=== PATIENT | male | born 1945 | race African-American/Black ===

== ENCOUNTER 2017-10-31 11:34 | Inpatient (IN) | payer OTHER ==
[2017-10-31 12:36] VITALS: BMI 37.3
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
[2017-10-31] MEDS ORDERED: ACETAMINOPHEN 325 MG TABLET (FP) PO PRN (15:43)
[2017-10-31] MEDS ORDERED: NICOTINE POLACRILEX 4 MG GUM BC PRN (15:43)
[2017-10-31] MEDS ORDERED: MAG HYDROX/AL HYDROX/SIMETH 30 ML UNIT-DOSE CUP PO PRN (15:43)
[2017-10-31] MEDS ORDERED: MAGNESIUM HYDROX 2400MG/30ML ORAL SUSPENSION 30 ML CUP PO PRN (15:43)
[2017-10-31] MEDS ORDERED: guaiFENesin/D-METHORPHAN HB 10 ML UNIT-DOSE CUPS PO PRN (15:43)
[2017-10-31] MEDS ORDERED: chlordiazePOXIDE HCL 25 MG CAPSULE PO PRN (15:43)
[2017-10-31] MEDS ORDERED: MAGNESIUM CITRATE 300 ML BOTTLE PO PRN (15:43)
[2017-10-31] MEDS ORDERED: IBUPROFEN 400 MG TABLET (FP) PO PRN (15:43)
[2017-10-31] MEDS ORDERED: P-EPHED 60MG/TRIPROLIDI 2.5MG TABLET PO PRN (15:43)
[2017-10-31] MEDS ORDERED: MENTHOL/PHENOL 1 EACH UD MM PRN (15:43)
[2017-10-31] MEDS ORDERED: LOPERAMIDE HCL 2 MG CAPSULE PO PRN (15:43)
[2017-10-31] MEDS ORDERED: METHADONE HCL 10 MG TABLET (FOR DETOX USE ONLY) PO ONE ×2 (16:30→23:00)
[2017-10-31] MEDS: chlordiazePOXIDE HCL 25 MG CAPSULE PO SCH ×2 (17:21→22:24)
[2017-10-31] MEDS: THIAMINE HCL 100 MG TABLET (FP) PO SCH (22:24)
[2017-10-31 23:08] LABS: PH,URINE 6.5 (5.0-8.0); URINE APPEARANCE CLEAR; URINE BILIRUBIN NEGATIVE (NEGATIVE); URINE BLOOD TRACE-LYSE (NEGATIVE); URINE COLOR LT. YELLOW; URINE GLUCOSE (UA) NEGATIVE (NEGATIVE); URINE KETONE NEGATIVE (NEGATIVE); URINE LEUK ESTERASE NEGATIVE (NEGATIVE); URINE NITRITE NEGATIVE (NEGATIVE); URINE UROBILINOGEN 0.2 mg/dL (0.2-1.0)
[2017-10-31 23:18] LABS: URINE PROTEIN 2+ (NEGATIVE)
[2017-10-31 23:30] LABS: URINE RBC 12 /hpf (0-3); URINE WBC 1 /hpf (3-5)
[2017-11-01] MEDS: chlordiazePOXIDE HCL 25 MG CAPSULE PO SCH ×4 (07:47→22:22)
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
[2017-11-01] MEDS ORDERED: LISINOPRIL 10 MG TABLET (FP) PO SCH (10:00)
[2017-11-01] MEDS ORDERED: METHADONE HCL 10 MG TABLET (FOR DETOX USE ONLY) PO SCH (10:00)
[2017-11-01] MEDS ORDERED: HYDROCHLOROTHIAZIDE 12.5 MG CAPSULE (FP) PO SCH (10:00)
[2017-11-01 10:12] LABS: MCH 30.6 pg (25.7-33.7); MCHC 32.4 g/dl (32.0-35.9); MEAN CELL VOLUME 94.5 fl (80-96); MEAN PLT VOLUME 8.9 fl (7.5-11.1); PLATELET COUNT 158 K/MM3 (134-434); RDW 14.8 % (11.9-15.9); WHITE BLOOD COUNT 5.1 K/mm3 (4.0-10.0)
[2017-11-01 10:31] LABS: ALBUMIN 2.6 g/dl (3.4-5.0); ALK PHOS 88 U/L (45-117); ANION GAP 10 (8-16); BILIRUBIN,TOTAL 0.7 mg/dL (0.2-1.0); CALCIUM 8.2 mg/dL (8.5-10.1); CO2 22 mmol/L (21-32); GLUCOSE,RANDOM 94 mg/dL (74-106); SGOT/AST 56 U/L (15-37); SGPT/ALT 29 U/L (12-78); TOT PROT 7.7 g/dl (6.4-8.2)
[2017-11-01 10:42] LABS: URINE LEUK ESTERASE Negative (NEGATIVE)
[2017-11-01] MEDS: PRENATAL VITAMINS W/ FOLIC ACID TABLET (FP) PO SCH (10:45)
[2017-11-01] MEDS: NICOTINE 21 MG/24 HOURS TOPICAL PATCH TD SCH (10:45)
[2017-11-01] MEDS ORDERED: NAPROXEN 500 MG TABLET (FP) PO ONE (11:34)
--- NOTE | 2017-11-01 11:41 | EKG ---
Test Reason : Blood Pressure : / mmHG Vent. Rate : 066 BPM Atrial Rate : 066 BPM P-R Int : 168 ms QRS Dur : 096 ms QT Int : 434 ms P-R-T Axes : 045 -20 000 degrees QTc Int : 454 ms NORMAL SINUS RHYTHM NORMAL ECG NO PREVIOUS ECGS AVAILABLE Confirmed by ISAAK LE MD ([id number]) on 11/01/2017 11:41:11 AM Referred By: Confirmed By:ISAAK LE MD
--- NOTE | 2017-11-01 11:44 | PN ---
[facility] CIWA - CIWA Score Nausea/Vomitin-No Nausea/No Vomiting Muscle Tremors: 4-Moderate,w/Arms Extend Anxiety: 4-Mod. Anxious/Guarded Agitation: 4-Moderately Restless Paroxysmal Sweats: 1-Minimal Palms Moist Orientation: 0-Oriented Tacttile Disturbances: 3-Moderate Itch/Numb/Burn Auditory Disturbances: 0-None Visual Disturbances: 0-None Headache: 0-None Present CIWA-Ar Total Score: 16 S COWS - Scale Resting Pulse: 0= [place] 80 or Below Sweatin=Flushed/Facial Moisture Restless Observation: 3= Extraneous Movement Pupil Size: 2= Moderately Dilated Bone or Joint Aches: 4=Acute Joint/Muscle Pain Runny Nose/ Eye Tearin= None GI Upset > 30mins: 0= None Tremor Observation of Outstretched Hands: 1= Tremor [place], Not Seen Yawning Observation: 1= 1-2x During Session Anxiety or Irritability: 2=Irritable/Anxious Goose Flesh Skin: 0=Smooth Skin COWS Score: 15 [facility] Progress Note (SOAP) Subjective: ANXIETY,SWEATS,IRRITABILITY,FATIGUE. PT ON LOSARTAN 100 MG PO DAILY AND NORVASC 10 MG PO DAILY PER HOME PHARMACY LIST. Objective: 11/01/17 11:36 Vital Signs Temperature 96.1 F L 11/01/17 09:36 Pulse Rate 59 L 11/01/17 09:36 Respiratory Rate 18 11/01/17 09:36 Blood Pressure 189/108 11/01/17 09:36 O2 Sat by Pulse Oximetry (%) Laboratory Last Values WBC 5.1 K/mm3 (4.0-10.0) D 11/01/17 05:45 RBC 4.19 M/mm3 (4.00-5.60) 11/01/17 05:45 Hgb 12.8 GM/dL (11.7-16.9) D 11/01/17 05:45 Hct 39.6 % (35.4-49) D 11/01/17 05:45 MCV 94.5 fl (80-96) 11/01/17 05:45 MCH 30.6 pg (25.7-33.7) 11/01/17 05:45 MCHC 32.4 g/dl (32.0-35.9) 11/01/17 05:45 RDW 14.8 % (11.9-15.9) 11/01/17 05:45 Plt Count 158 K/MM3 (134-434) 11/01/17 05:45 MPV 8.9 fl (7.5-11.1) D 11/01/17 05:45 Sodium 138 mmol/L (136-145) 11/01/17 05:45 Potassium 3.8 mmol/L (3.5-5.1) 11/01/17 05:45 Chloride 106 mmol/L (98-107) 11/01/17 05:45 Carbon Dioxide 22 mmol/L (21-32) 11/01/17 05:45 Anion Gap 10 (8-16) 11/01/17 05:45 BUN 16 mg/dL (7-18) D 11/01/17 05:45 Creatinine 1.0 mg/dL (0.7-1.3) D 11/01/17 05:45 Creat Clearance w eGFR > 60 (>60) 11/01/17 05:45 Random Glucose 94 mg/dL (74-106) 11/01/17 05:45 Calcium 8.2 mg/dL (8.5-10.1) L 11/01/17 05:45 Total Bilirubin 0.7 mg/dL (0.2-1.0) D 11/01/17 05:45 AST 56 U/L (15-37) H 11/01/17 05:45 ALT 29 U/L (12-78) 11/01/17 05:45 Alkaline Phosphatase 88 U/L (45-117) D 11/01/17 05:45 Total Protein 7.7 g/dl (6.4-8.2) 11/01/17 05:45 Albumin 2.6 g/dl (3.4-5.0) L 11/01/17 05:45 Urine Color Lt. yellow 10/31/17 21:00 Urine Appearance Clear 10/31/17 21:00 Urine pH 6.5 (5.0-8.0) D 10/31/17 21:00 Ur Specific [place] 1.025 (1.001-1.035) 10/31/17 21:00 Urine Protein 2+ (NEGATIVE) H 10/31/17 21:00 Urine Glucose (UA) Negative (NEGATIVE) 10/31/17 21:00 Urine Ketones Negative (NEGATIVE) 10/31/17 21:00 Urine Blood Trace-lyse (NEGATIVE) 10/31/17 21:00 Urine Nitrite Negative (NEGATIVE) 10/31/17 21:00 Urine Bilirubin Negative (NEGATIVE) 10/31/17 21:00 Urine Urobilinogen 0.2 mg/dL (0.2-1.0) 10/31/17 21:00 Ur Leukocyte Esterase Negative (NEGATIVE) 10/31/17 21:00 Urine WBC (Auto) 1 /hpf (3-5) 10/31/17 21:00 Urine RBC (Auto) 12 /hpf (0-3) 10/31/17 21:00 Ur Epithelial Cells Rare /HPF (FEW) 10/31/17 21:00 Assessment: 11/01/17 11:36 WITHDRAWAL SX Plan: CONTINUE DETOX INCREASE PO FLUIDS. REORDER MEDS ABOVE D/C LISINOPRIL AND HCTZ.
[2017-11-01] MEDS ORDERED: cloNIDine HCL 0.1 MG TABLET PO ONE (14:34)
[2017-11-01] MEDS: NAPROXEN 500 MG TABLET (FP) PO SCH (22:22)
[2017-11-01] MEDS: THIAMINE HCL 100 MG TABLET (FP) PO SCH (22:22)
[2017-11-02] MEDS: chlordiazePOXIDE HCL 25 MG CAPSULE PO SCH ×2 (06:43→10:25)
[2017-11-02] MEDS: LOSARTAN POTASSIUM 50 MG TABLET (FP) PO SCH (09:29)
[2017-11-02] MEDS: amLODIPine BESYLATE 10 MG TABLET (FP) PO SCH (09:29)
[2017-11-02] MEDS: PRENATAL VITAMINS W/ FOLIC ACID TABLET (FP) PO SCH (10:24)
[2017-11-02] MEDS: NAPROXEN 500 MG TABLET (FP) PO SCH ×2 (10:24→22:56)
[2017-11-02] MEDS: NICOTINE 21 MG/24 HOURS TOPICAL PATCH TD SCH (10:25)
[2017-11-02] MEDS: METHADONE HCL 5 MG TABLET (FOR DETOX USE ONLY) PO SCH (10:25)
--- NOTE | 2017-11-02 10:49 | PN ---
[facility] CIWA - CIWA Score Nausea/Vomitin-No Nausea/No Vomiting Muscle Tremors: 4-Moderate,w/Arms Extend Anxiety: 4-Mod. Anxious/Guarded Agitation: 4-Moderately Restless Paroxysmal Sweats: 1-Minimal Palms Moist Orientation: 0-Oriented Tacttile Disturbances: 3-Moderate Itch/Numb/Burn Auditory Disturbances: 0-None Visual Disturbances: 0-None Headache: 0-None Present CIWA-Ar Total Score: 16 S COWS - Scale Resting Pulse: 0= [place] 80 or Below Sweatin= Chills/Flushing Restless Observation: 3= Extraneous Movement Pupil Size: 0= Normal to Room Light Bone or Joint Aches: 4=Acute Joint/Muscle Pain Runny Nose/ Eye Tearin= Nasal Congestion GI Upset > 30mins: 0= None Tremor Observation of Outstretched Hands: 1= Tremor [place], Not Seen Yawning Observation: 1= 1-2x During Session Anxiety or Irritability: 2=Irritable/Anxious Goose Flesh Skin: 0=Smooth Skin COWS Score: 13 S Progress Note (SOAP) Subjective: ANXIETY,SWEATS,IRRITABILITY,AGITATION. Objective: 11/02/17 10:50 Vital Signs Temperature 96.5 F L 11/02/17 10:32 Pulse Rate 62 11/02/17 10:32 Respiratory Rate 18 11/02/17 10:32 Blood Pressure 183/107 11/02/17 10:32 O2 Sat by Pulse Oximetry (%) Laboratory Last Values WBC 5.1 K/mm3 (4.0-10.0) D 11/01/17 05:45 RBC 4.19 M/mm3 (4.00-5.60) 11/01/17 05:45 Hgb 12.8 GM/dL (11.7-16.9) D 11/01/17 05:45 Hct 39.6 % (35.4-49) D 11/01/17 05:45 MCV 94.5 fl (80-96) 11/01/17 05:45 MCH 30.6 pg (25.7-33.7) 11/01/17 05:45 MCHC 32.4 g/dl (32.0-35.9) 11/01/17 05:45 RDW 14.8 % (11.9-15.9) 11/01/17 05:45 Plt Count 158 K/MM3 (134-434) 11/01/17 05:45 MPV 8.9 fl (7.5-11.1) D 11/01/17 05:45 Sodium 138 mmol/L (136-145) 11/01/17 05:45 Potassium 3.8 mmol/L (3.5-5.1) 11/01/17 05:45 Chloride 106 mmol/L (98-107) 11/01/17 05:45 Carbon Dioxide 22 mmol/L (21-32) 11/01/17 05:45 Anion Gap 10 (8-16) 11/01/17 05:45 BUN 16 mg/dL (7-18) D 11/01/17 05:45 Creatinine 1.0 mg/dL (0.7-1.3) D 11/01/17 05:45 Creat Clearance w eGFR > 60 (>60) 11/01/17 05:45 Random Glucose 94 mg/dL (74-106) 11/01/17 05:45 Calcium 8.2 mg/dL (8.5-10.1) L 11/01/17 05:45 Total Bilirubin 0.7 mg/dL (0.2-1.0) D 11/01/17 05:45 AST 56 U/L (15-37) H 11/01/17 05:45 ALT 29 U/L (12-78) 11/01/17 05:45 Alkaline Phosphatase 88 U/L (45-117) D 11/01/17 05:45 Total Protein 7.7 g/dl (6.4-8.2) 11/01/17 05:45 Albumin 2.6 g/dl (3.4-5.0) L 11/01/17 05:45 Urine Color Lt. yellow 10/31/17 21:00 Urine Appearance Clear 10/31/17 21:00 Urine pH 6.5 (5.0-8.0) D 10/31/17 21:00 Ur Specific [place] 1.025 (1.001-1.035) 10/31/17 21:00 Urine Protein 2+ (NEGATIVE) H 10/31/17 21:00 Urine Glucose (UA) Negative (NEGATIVE) 10/31/17 21:00 Urine Ketones Negative (NEGATIVE) 10/31/17 21:00 Urine Blood Trace-lyse (NEGATIVE) 10/31/17 21:00 Urine Nitrite Negative (NEGATIVE) 10/31/17 21:00 Urine Bilirubin Negative (NEGATIVE) 10/31/17 21:00 Urine Urobilinogen 0.2 mg/dL (0.2-1.0) 10/31/17 21:00 Ur Leukocyte Esterase Negative (NEGATIVE) 10/31/17 21:00 Urine WBC (Auto) 1 /hpf (3-5) 10/31/17 21:00 Urine RBC (Auto) 12 /hpf (0-3) 10/31/17 21:00 Ur Epithelial Cells Rare /HPF (FEW) 10/31/17 21:00 RPR Titer Nonreactive (NONREACTIVE) 11/01/17 05:45 Assessment: 11/02/17 10:50 WITHDRAWAL SX Plan: CONTINUE DETOX DIETARY CONSULT TODAY RE: PATIENT REQUEST
[2017-11-02] MEDS: chlordiazePOXIDE 5 MG CAPSULE PO SCH ×2 (17:48→22:55)
[2017-11-02] MEDS: hydrOXYzine PAMOATE 25 MG CAPSULE (FP) PO PRN ×2 (17:50→22:56)
[2017-11-02] MEDS: CYCLOBENZAPRINE HCL 10 MG TABLET (FP) PO PRN (17:50)
[2017-11-02] MEDS: THIAMINE HCL 100 MG TABLET (FP) PO SCH (22:56)
[2017-11-03] MEDS: chlordiazePOXIDE 5 MG CAPSULE PO SCH ×2 (05:44→10:06)
[2017-11-03] MEDS: PRENATAL VITAMINS W/ FOLIC ACID TABLET (FP) PO SCH (10:06)
[2017-11-03] MEDS: METHADONE HCL 5 MG TABLET (FOR DETOX USE ONLY) PO SCH (10:06)
[2017-11-03] MEDS: amLODIPine BESYLATE 10 MG TABLET (FP) PO SCH (10:07)
[2017-11-03] MEDS: NICOTINE 21 MG/24 HOURS TOPICAL PATCH TD SCH (10:07)
[2017-11-03] MEDS: NAPROXEN 500 MG TABLET (FP) PO SCH ×2 (10:07→22:18)
[2017-11-03] MEDS: LOSARTAN POTASSIUM 50 MG TABLET (FP) PO SCH (10:07)
[2017-11-03] MEDS: CYCLOBENZAPRINE HCL 10 MG TABLET (FP) PO PRN ×2 (11:56→22:18)
--- NOTE | 2017-11-03 15:18 | PN ---
[facility] Progress Note (SOAP) Subjective: Sweating, Anxious, Body Aches. Objective: PT. A & O X 3, OBSERVED AMBULATING ON UNIT. NO ACUTE DISTRESS. 11/03/17 15:15 Vital Signs Temperature 97.2 F L 11/03/17 14:08 Pulse Rate 73 11/03/17 14:08 Respiratory Rate 20 11/03/17 14:08 Blood Pressure 144/89 11/03/17 14:08 O2 Sat by Pulse Oximetry (%) Laboratory Tests 10/31/17 11/01/17 11/01/17 21:00 05:45 05:45 WBC 5.1 D RBC 4.19 Hgb 12.8 D Hct 39.6 D MCV 94.5 MCH 30.6 MCHC 32.4 RDW 14.8 Plt Count 158 MPV 8.9 D Sodium 138 Potassium 3.8 Chloride 106 Carbon Dioxide 22 Anion Gap 10 BUN 16 D Creatinine 1.0 D Creat Clearance w eGFR > 60 Random Glucose 94 Calcium 8.2 L Total Bilirubin 0.7 D AST 56 H ALT 29 Alkaline Phosphatase 88 D Total Protein 7.7 Albumin 2.6 L Urine Color Lt. yellow Urine Appearance Clear Urine pH 6.5 D Ur Specific [place] 1.025 Urine Protein 2+ H Urine Glucose (UA) Negative Urine Ketones Negative Urine Blood Trace-lyse Urine Nitrite Negative Urine Bilirubin Negative Urine Urobilinogen 0.2 Ur Leukocyte Esterase Negative Urine WBC (Auto) 1 Urine RBC (Auto) 12 Ur Epithelial Cells Rare RPR Titer 11/01/17 05:45 WBC RBC Hgb Hct MCV MCH MCHC RDW Plt Count MPV Sodium Potassium Chloride Carbon Dioxide Anion Gap BUN Creatinine Creat Clearance w eGFR Random Glucose Calcium Total Bilirubin AST ALT Alkaline Phosphatase Total Protein Albumin Urine Color Urine Appearance Urine pH Ur Specific [place] Urine Protein Urine Glucose (UA) Urine Ketones Urine Blood Urine Nitrite Urine Bilirubin Urine Urobilinogen Ur Leukocyte Esterase Urine WBC (Auto) Urine RBC (Auto) Ur Epithelial Cells RPR Titer Nonreactive LABS NOTED. Assessment: 11/03/17 15:15 WITHDRAWAL SYMPTOMS. Plan: CONTINUE DETOX. REPEAT UA FOR ADMISSION ABNORMALITIES. INCREASE DAILY PO FLUID INTAKE.
[2017-11-03] MEDS: chlordiazePOXIDE HCL 10 MG CAPSULE PO SCH ×2 (19:02→22:18)
[2017-11-03] MEDS: THIAMINE HCL 100 MG TABLET (FP) PO SCH (22:18)
[2017-11-03] MEDS: hydrOXYzine PAMOATE 25 MG CAPSULE (FP) PO PRN (22:18)
[2017-11-04] MEDS: chlordiazePOXIDE HCL 10 MG CAPSULE PO SCH ×2 (06:10→10:00)
[2017-11-04] MEDS: NICOTINE 21 MG/24 HOURS TOPICAL PATCH TD SCH (10:00)
[2017-11-04] MEDS: amLODIPine BESYLATE 10 MG TABLET (FP) PO SCH (10:00)
[2017-11-04] MEDS: NAPROXEN 500 MG TABLET (FP) PO SCH ×2 (10:00→22:27)
[2017-11-04] MEDS: LOSARTAN POTASSIUM 50 MG TABLET (FP) PO SCH (10:00)
[2017-11-04] MEDS ORDERED: METHADONE HCL 10 MG TABLET (FOR DETOX USE ONLY) PO SCH (10:00)
[2017-11-04] MEDS: PRENATAL VITAMINS W/ FOLIC ACID TABLET (FP) PO SCH (10:00)
[2017-11-04] MEDS: CYCLOBENZAPRINE HCL 10 MG TABLET (FP) PO PRN ×2 (11:50→22:27)
--- NOTE | 2017-11-04 13:20 | PN ---
S Progress Note (SOAP) Subjective: Agitation, nausea, sweating Objective: 11/04/17 13:16 Last Vital Signs Temp Pulse Resp BP Pulse Ox 97.2 F L 71 20 177/98 11/04/17 09:27 11/04/17 09:27 11/04/17 09:27 11/04/17 09:27 B/P noted: h/o htn (on meds) Laboratory Tests 10/31/17 11/01/17 11/01/17 21:00 05:45 05:45 WBC 5.1 D RBC 4.19 Hgb 12.8 D Hct 39.6 D MCV 94.5 MCH 30.6 MCHC 32.4 RDW 14.8 Plt Count 158 MPV 8.9 D Sodium 138 Potassium 3.8 Chloride 106 Carbon Dioxide 22 Anion Gap 10 BUN 16 D Creatinine 1.0 D Creat Clearance w eGFR > 60 Random Glucose 94 Calcium 8.2 L Total Bilirubin 0.7 D AST 56 H ALT 29 Alkaline Phosphatase 88 D Total Protein 7.7 Albumin 2.6 L Urine Color Lt. yellow Urine Appearance Clear Urine pH 6.5 D Ur Specific [place] 1.025 Urine Protein 2+ H Urine Glucose (UA) Negative Urine Ketones Negative Urine Blood Trace-lyse Urine Nitrite Negative Urine Bilirubin Negative Urine Urobilinogen 0.2 Ur Leukocyte Esterase Negative Urine WBC (Auto) 1 Urine RBC (Auto) 12 Ur Epithelial Cells Rare RPR Titer 11/01/17 05:45 WBC RBC Hgb Hct MCV MCH MCHC RDW Plt Count MPV Sodium Potassium Chloride Carbon Dioxide Anion Gap BUN Creatinine Creat Clearance w eGFR Random Glucose Calcium Total Bilirubin AST ALT Alkaline Phosphatase Total Protein Albumin Urine Color Urine Appearance Urine pH Ur Specific [place] Urine Protein Urine Glucose (UA) Urine Ketones Urine Blood Urine Nitrite Urine Bilirubin Urine Urobilinogen Ur Leukocyte Esterase Urine WBC (Auto) Urine RBC (Auto) Ur Epithelial Cells RPR Titer Nonreactive Labs noted: abnormal UA Assessment: 11/04/17 13:17 Withdrawal symptoms Abnormal UA noted Plan: Continue detox HTN: continue meds, low sodium diet, follow up with PCP for management Abnormal UA: encouraged to drink lots of water, repeat UA
[2017-11-04 16:04] LABS: URINE APPEARANCE CLEAR; URINE BILIRUBIN NEGATIVE (NEGATIVE); URINE BLOOD NEGATIVE (NEGATIVE); URINE COLOR LTYELLOW; URINE GLUCOSE (UA) NEGATIVE (NEGATIVE); URINE KETONE NEGATIVE (NEGATIVE); URINE LEUK ESTERASE NEGATIVE (NEGATIVE); URINE NITRITE NEGATIVE (NEGATIVE); URINE PROTEIN NEGATIVE (NEGATIVE); URINE UROBILINOGEN NEGATIVE mg/dL (0.2-1.0)
[2017-11-04 20:19] LABS: URINE LEUK ESTERASE Negative (NEGATIVE)
[2017-11-04] MEDS: THIAMINE HCL 100 MG TABLET (FP) PO SCH (22:27)
[2017-11-05] MEDS ORDERED: METHADONE HCL 5 MG TABLET (FOR DETOX USE ONLY) PO SCH (06:00)
[2017-11-05] MEDS: LOSARTAN POTASSIUM 50 MG TABLET (FP) PO SCH (10:35)
[2017-11-05] MEDS: PRENATAL VITAMINS W/ FOLIC ACID TABLET (FP) PO SCH (10:35)
[2017-11-05] MEDS: amLODIPine BESYLATE 10 MG TABLET (FP) PO SCH (10:35)
[2017-11-05] MEDS: NAPROXEN 500 MG TABLET (FP) PO SCH ×2 (10:35→22:15)
[2017-11-05] MEDS: NICOTINE 21 MG/24 HOURS TOPICAL PATCH TD SCH (10:35)
--- NOTE | 2017-11-05 12:04 | PN ---
[facility] Progress Note (SOAP) Subjective: ANXIETY,SWEATS,LOWER BACK PAIN. Objective: 11/05/17 12:03 Vital Signs 11/05/17 11/05/17 06:12 09:19 Temperature 97.1 F L 96.4 F L Pulse Rate 69 70 Respiratory 18 18 Rate Blood Pressure 131/72 169/104 Laboratory Last Values WBC 5.1 K/mm3 (4.0-10.0) D 11/01/17 05:45 RBC 4.19 M/mm3 (4.00-5.60) 11/01/17 05:45 Hgb 12.8 GM/dL (11.7-16.9) D 11/01/17 05:45 Hct 39.6 % (35.4-49) D 11/01/17 05:45 MCV 94.5 fl (80-96) 11/01/17 05:45 MCH 30.6 pg (25.7-33.7) 11/01/17 05:45 MCHC 32.4 g/dl (32.0-35.9) 11/01/17 05:45 RDW 14.8 % (11.9-15.9) 11/01/17 05:45 Plt Count 158 K/MM3 (134-434) 11/01/17 05:45 MPV 8.9 fl (7.5-11.1) D 11/01/17 05:45 Sodium 138 mmol/L (136-145) 11/01/17 05:45 Potassium 3.8 mmol/L (3.5-5.1) 11/01/17 05:45 Chloride 106 mmol/L (98-107) 11/01/17 05:45 Carbon Dioxide 22 mmol/L (21-32) 11/01/17 05:45 Anion Gap 10 (8-16) 11/01/17 05:45 BUN 16 mg/dL (7-18) D 11/01/17 05:45 Creatinine 1.0 mg/dL (0.7-1.3) D 11/01/17 05:45 Creat Clearance w eGFR > 60 (>60) 11/01/17 05:45 Random Glucose 94 mg/dL (74-106) 11/01/17 05:45 Calcium 8.2 mg/dL (8.5-10.1) L 11/01/17 05:45 Total Bilirubin 0.7 mg/dL (0.2-1.0) D 11/01/17 05:45 AST 56 U/L (15-37) H 11/01/17 05:45 ALT 29 U/L (12-78) 11/01/17 05:45 Alkaline Phosphatase 88 U/L (45-117) D 11/01/17 05:45 Total Protein 7.7 g/dl (6.4-8.2) 11/01/17 05:45 Albumin 2.6 g/dl (3.4-5.0) L 11/01/17 05:45 Urine Color L[place] 11/04/17 08:58 Urine Appearance Clear 11/04/17 08:58 Urine pH 7.0 (5.0-8.0) 11/04/17 08:58 Ur Specific [place] 1.011 (1.001-1.035) 11/04/17 08:58 Urine Protein Negative (NEGATIVE) 11/04/17 08:58 Urine Glucose (UA) Negative (NEGATIVE) 11/04/17 08:58 Urine Ketones Negative (NEGATIVE) 11/04/17 08:58 Urine Blood Negative (NEGATIVE) 11/04/17 08:58 Urine Nitrite Negative (NEGATIVE) 11/04/17 08:58 Urine Bilirubin Negative (NEGATIVE) 11/04/17 08:58 Urine Urobilinogen Negative mg/dL (0.2-1.0) 11/04/17 08:58 Ur Leukocyte Esterase Negative (NEGATIVE) 11/04/17 08:58 Urine WBC (Auto) 1 /hpf (3-5) 10/31/17 21:00 Urine RBC (Auto) 12 /hpf (0-3) 10/31/17 21:00 Ur Epithelial Cells Rare /HPF (FEW) 10/31/17 21:00 RPR Titer Nonreactive (NONREACTIVE) 11/01/17 05:45 Assessment: 11/05/17 12:04 WITHDRAWAL SX Plan: CONTINUE DETOX
[2017-11-05] MEDS: CYCLOBENZAPRINE HCL 10 MG TABLET (FP) PO SCH ×2 (14:15→22:15)
[2017-11-05] MEDS: THIAMINE HCL 100 MG TABLET (FP) PO SCH (22:15)
[2017-11-06] MEDS: CYCLOBENZAPRINE HCL 10 MG TABLET (FP) PO SCH (07:33)
[2017-11-06 09:05] VITALS: BP 156/99; PULSE 75; TEMP 96.5
--- NOTE | 2017-11-06 10:07 | DS ---
[facility] Detox Discharge Summary Admission Date: 10/31/17 Discharge Date: 11/06/17 - History Present History: Alcohol Dependence, Opioid Dependence Additional Comments: DETOX COMPLETED. ALERT O X 3. NAD. PT REPORTS ALL MEDICAL CARE/RX AT [facility] WITH PMD DR CHERISE GARRETT. REMINDED PT TO FOLLOW UP WITH MEDICAL MANAGEMENT OF COMORBID CONDITIONS NEEDED. Pertinent Past History: HIV+ HTN HEP C OBESITY CHRONIC BACK PAIN - Physical Exam Results Vital Signs: Vital Signs Temperature 96.5 F L 11/06/17 09:04 Pulse Rate 75 11/06/17 09:04 Respiratory Rate 18 11/06/17 09:04 Blood Pressure 156/99 11/06/17 09:04 O2 Sat by Pulse Oximetry (%) Pertinent Admission Physical Exam Findings: WITHDRAWAL SX Laboratory Last Values WBC 5.1 K/mm3 (4.0-10.0) D 11/01/17 05:45 RBC 4.19 M/mm3 (4.00-5.60) 11/01/17 05:45 Hgb 12.8 GM/dL (11.7-16.9) D 11/01/17 05:45 Hct 39.6 % (35.4-49) D 11/01/17 05:45 MCV 94.5 fl (80-96) 11/01/17 05:45 MCH 30.6 pg (25.7-33.7) 11/01/17 05:45 MCHC 32.4 g/dl (32.0-35.9) 11/01/17 05:45 RDW 14.8 % (11.9-15.9) 11/01/17 05:45 Plt Count 158 K/MM3 (134-434) 11/01/17 05:45 MPV 8.9 fl (7.5-11.1) D 11/01/17 05:45 Sodium 138 mmol/L (136-145) 11/01/17 05:45 Potassium 3.8 mmol/L (3.5-5.1) 11/01/17 05:45 Chloride 106 mmol/L (98-107) 11/01/17 05:45 Carbon Dioxide 22 mmol/L (21-32) 11/01/17 05:45 Anion Gap 10 (8-16) 11/01/17 05:45 BUN 16 mg/dL (7-18) D 11/01/17 05:45 Creatinine 1.0 mg/dL (0.7-1.3) D 11/01/17 05:45 Creat Clearance w eGFR > 60 (>60) 11/01/17 05:45 Random Glucose 94 mg/dL (74-106) 11/01/17 05:45 Calcium 8.2 mg/dL (8.5-10.1) L 11/01/17 05:45 Total Bilirubin 0.7 mg/dL (0.2-1.0) D 11/01/17 05:45 AST 56 U/L (15-37) H 11/01/17 05:45 ALT 29 U/L (12-78) 11/01/17 05:45 Alkaline Phosphatase 88 U/L (45-117) D 11/01/17 05:45 Total Protein 7.7 g/dl (6.4-8.2) 11/01/17 05:45 Albumin 2.6 g/dl (3.4-5.0) L 11/01/17 05:45 Urine Color Ltyellow 11/04/17 08:58 Urine Appearance Clear 11/04/17 08:58 Urine pH 7.0 (5.0-8.0) 11/04/17 08:58 Ur Specific [place] 1.011 (1.001-1.035) 11/04/17 08:58 Urine Protein Negative (NEGATIVE) 11/04/17 08:58 Urine Glucose (UA) Negative (NEGATIVE) 11/04/17 08:58 Urine Ketones Negative (NEGATIVE) 11/04/17 08:58 Urine Blood Negative (NEGATIVE) 11/04/17 08:58 Urine Nitrite Negative (NEGATIVE) 11/04/17 08:58 Urine Bilirubin Negative (NEGATIVE) 11/04/17 08:58 Urine Urobilinogen Negative mg/dL (0.2-1.0) 11/04/17 08:58 Ur Leukocyte Esterase Negative (NEGATIVE) 11/04/17 08:58 Urine WBC (Auto) 1 /hpf (3-5) 10/31/17 21:00 Urine RBC (Auto) 12 /hpf (0-3) 10/31/17 21:00 Ur Epithelial Cells Rare /HPF (FEW) 10/31/17 21:00 RPR Titer Nonreactive (NONREACTIVE) 11/01/17 05:45 - Treatment Hospital Course: Detox Protocol Followed, Detoxed Safely, Responded well, Discharged Condition Good - Medication Discharge Medications: Ambulatory Orders Elviteg/Cob/Emtri/Tenof Alafen [Genvoya (Non-Formulary)] 1 each PO DAILY Hydrochlorothiazide [Hctz -] 25 mg PO DAILY 10/31/17 Trazodone HCl [Desyrel -] 50 mg PO AM 10/31/17 Trazodone HCl [Desyrel -] 200 mg PO HS 10/31/17 Amlodipine Besylate [Norvasc -] 10 mg PO DAILY 11/01/17 Losartan Potassium [Cozaar] 100 mg PO DAILY 11/01/17 - Diagnosis (1) AIDS Status: Chronic (2) HEP. C Status: Chronic (3) HTN Status: Chronic (4) Obesity Status: Chronic (5) Alcohol dependence with uncomplicated withdrawal Status: Acute (6) Opioid dependence with withdrawal Status: Acute (7) Chronic back pain Status: Acute Qualifiers: Back pain laterality: unspecified - AMA Did Patient Leave Against Medical Advice: No
== END 2017-11-06 10:27 | disposition home or self-care (01) | DRG 896 ==
LOC: YASAS 11:34 → Y3N 15:22
PROVIDERS: ADMIT Internal Medicine; ATTEND Internal Medicine
PROC: HZ2ZZZZ Detoxification Services for Substance Abuse Treatment (ICD-10-PCS; principal; 2017-10-31)
DX: F11.23 Opioid dependence with withdrawal (principal); B20 Human immunodeficiency virus [HIV] disease; F10.230 Alcohol dependence with withdrawal, uncomplicated; F10.24 Alcohol dependence with alcohol-induced mood disorder; F14.24 Cocaine dependence with cocaine-induced mood disorder; F17.210 Nicotine dependence, cigarettes, uncomplicated; F19.24 Other psychoactive substance dependence with psychoactive substance-induced mood disorder; F32.9 Major depressive disorder, single episode, unspecified; I10 Essential (primary) hypertension; B18.2 Chronic viral hepatitis C; E66.9 Obesity, unspecified; Z68.37 Body mass index [BMI] 37.0-37.9, adult; M54.5 Low back pain; G89.29 Other chronic pain; Z96.643 Presence of artificial hip joint, bilateral; Z88.0 Allergy status to penicillin; Z91.013 Allergy to seafood; Z91.048 Other nonmedicinal substance allergy status
CPT/HCPCS: 36415; 80053; 81003; 81015; 85027; 86593; 93005; 93010